=== PATIENT | male | born 1970 | race Asian ===

== ENCOUNTER 2018-08-30 08:31 | Inpatient (IN) | payer OTHER ==
[~2018-08-30] VITALS: Ht 167.6 cm; Wt 80.0 kg
[2018-08-30 08:43] VITALS: Ht 167.6 cm; Wt 80.0 kg
[2018-08-30 09:31] LABS: PLATELET COUNT 315 x10^3mcL (130-400); RED CELL DISTRIBUTION WIDTH 13.6 % (11.5-14.5)
[2018-08-30 09:34] LABS: BASOPHIL % 0 % (0-2)
[2018-08-30 09:47] LABS: UA SPECIFIC GRAVITY 1.025 (1.005-1.035); microscopic required? YES; urine erythrocyte 3+ (NEGATIVE)
[2018-08-30 11:57] LABS: ALBUMIN 3.5 g/dL (3.4-5.0); ALKALINE PHOSPHATASE 49 U/L (46-116); ALT/SGPT 73 U/L (16-63); AMYLASE 33 U/L (25-115); AST/SGOT 48 U/L (15-37); BILIRUBIN TOTAL 0.38 mg/dL (0.20-1.00); CALCIUM 8.4 mg/dL (8.5-10.1); CARBON DIOXIDE 26.5 mmol/L (21-32); CHLORIDE SERUM 105 mmol/L (98-107); CREATININE SERUM 1.1 mg/dL (0.7-1.3); GFR1 > 60 mL/min; GLUCOSE SERUM 117 mg/dL (74-106); LIPASE 101 IU/L (73-393); POTASSIUM SERUM 4.5 mmol/L (3.5-5.1); SODIUM SERUM 141 mmol/L (136-145); TOTAL PROTEIN, SERUM 7.3 g/dL (6.4-8.2)
[2018-08-30 13:15] VITALS: BP 111/59
[2018-08-30 16:58] VITALS: BP 107/66
[2018-08-30 21:46] VITALS: BP 106/70
[2018-08-31 05:53] VITALS: BP 101/60
[2018-08-31 06:20] LABS: BASOPHIL % 0.4 % (0-2); PLATELET COUNT 286 x10^3mcL (130-400); RED CELL DISTRIBUTION WIDTH 13.8 % (11.5-14.5)
[2018-08-31 06:39] LABS: CARBON DIOXIDE 25.8 mmol/L (21-32); CHLORIDE SERUM 108 mmol/L (98-107); GFR1 > 60 mL/min; GLUCOSE SERUM 98 mg/dL (74-106); MAGNESIUM 2.3 mg/dL (1.8-2.4); PHOSPHOROUS 3.4 mg/dL (2.5-4.9); POTASSIUM SERUM 3.5 mmol/L (3.5-5.1); SODIUM SERUM 141 mmol/L (136-145)
[2018-08-31 10:00] VITALS: BP 113/88
[2018-08-31] MEDS ORDERED: FLOMAX0.4 MG PO (13:19)
[2018-08-31] MEDS ORDERED: IBUPROFEN400 MG PO (13:20)
[2018-08-31 14:14] VITALS: BP 113/88
== END 2018-08-31 14:50 | disposition home or self-care (01) | DRG 690 ==
LOC: ED 08:31 → MU 11:19
PROVIDERS: Emergency Medicine; ADMIT Internal Medicine
DX: N13.6 Pyonephrosis (principal); Z87.442 Personal history of urinary calculi; Z88.0 Allergy status to penicillin; Z90.49 Acquired absence of other specified parts of digestive tract
CPT/HCPCS: 90658; J1885; J1940; J1956; J7030